=== PATIENT | male | born 1950 | race Caucasian/White ===

== ENCOUNTER 2017-12-06 10:29 | Day surgery (SDC) | payer OTHER ==
[2017-12-02 15:37] VITALS: BMI 29.5
[2017-12-06 10:58] VITALS: TEMP 97.9
[2017-12-06] MEDS ORDERED: LACTATED RINGERS 1,000 ML IV ONE (11:06)
[2017-12-06] MEDS ORDERED: LIDOCAINE 1% 20 ML VIAL (10MG/ML) FOR IV START INTRADERMA ONE (11:07)
[2017-12-06] MEDS ORDERED: PROPOFOL 10 MG/ML 20 ML VIAL IV ONE (12:15)
[2017-12-06] MEDS ORDERED: LIDOCAINE 1% INJ 10MG/ML (20 ML MDV) ONE (12:15)
--- NOTE | 2017-12-06 13:03 | P.PCN ---
Date of Procedure: 12/06/17 Procedure(s) Performed: Procedure: Colonoscopy and polypectomy. Preoperative diagnosis: Positive occult blood in the stools. Postoperative diagnosis: 1. Rectal polyps snared and fulgurated, but no large polyps or cancer. 2. Low-grade internal hemorrhoids not bleeding at the time of the examination. 3. 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 Preparation: HalfLytely prep. Sedation: Was provided by anesthesia. Brief clinical history: The patient is a 67-year-old male who is referred for this evaluation because of finding of blood in his stools. The patient reported occasional fresh bleeding per rectum when he has a hard bowel movement. Has history of prostate cancer for which he received radiation few years ago. No family history of colon cancer. This would be his first colonoscopy. Procedure: With the patient on his left lateral decubitus position and after informed consent and adequate sedation, the perianal area was inspected and it did not show any fissures or fistulas. There were no masses felt on digital rectal examination. The Olympus CFQ 160L video colonoscope was then inserted in the rectum in the usual fashion and advanced to the cecum. There was a 1- 1.5 cm polyp in the rectum close to the rectosigmoid junction which was snared and retrieved by suction. There was a smaller more superficial polyp in the immediate vicinity which I fulgurated with the snare but there were no large polyps or cancer. I retroflexed the endoscope in the rectum before the endoscope was withdrawn. There was low-grade internal hemorrhoids and there was evidence of distal radiation proctitis but there was no evidence of bleeding. The mucosa elsewhere appeared healthy. The patient tolerated the procedure well. Plan: The patient was reassured. Will await pathology results. I anticipate repeating this exam in 5 years. If he continues to show blood in the stools or manifest overt bleeding, I would consider argon plasma coagulation for his radiation proctitis. Discussed dietary measures and local care for hemorrhoids as well. She will follow-up with you as planned.
[2017-12-06 13:14] VITALS: BP 133/76; PULSE 55; RESP 18
== END 2017-12-06 13:39 | disposition home or self-care (01) ==
LOC: ORWHC2ENDO 10:29
DX: D12.7 Benign neoplasm of rectosigmoid junction (principal); K64.8 Other hemorrhoids; K62.7 Radiation proctitis; W88.1XXA Exposure to radioactive isotopes, initial encounter; Z85.46 Personal history of malignant neoplasm of prostate; I10 Essential (primary) hypertension; E78.5 Hyperlipidemia, unspecified; Z87.891 Personal history of nicotine dependence; L40.9 Psoriasis, unspecified; Z79.82 Long term (current) use of aspirin; Z79.899 Other long term (current) drug therapy
CPT/HCPCS: 88305; 45385; J2001; J2704

== ENCOUNTER 2023-01-26 07:43 | Day surgery (SDC) | payer MEDICARE, OTHER ==
[2023-01-21 16:13] VITALS: BMI 28.8
[~2023-01-26 07:43] MED LIST: LACTATED RINGERS 1,000 ML IV SCH
[2023-01-26 08:06] VITALS: TEMP 97.4
[2023-01-26] MEDS ORDERED: PROPOFOL 10 MG/ML 20 ML VIAL IV ONE (08:31)
--- NOTE | 2023-01-26 08:45 | P.PCN ---
Date of Procedure: 01/26/23 (BRIEF HISTORY: Patient is a []-year-old pleasant [] scheduled for an elective colonoscopy as a part of ) Procedure(s) Performed: BRIEF HISTORY: Patient is a 72-year-old pleasant white male scheduled for an elective colonoscopy as a part of evaluation of prior history of colon polyps.. His last colonoscopy was 5 years ago. PROCEDURE PERFORMED: Colonoscopy. PREOPERATIVE DIAGNOSIS: Screening for colon cancer. IV sedation per Anesthesia. PROCEDURE: After informed consent was obtained, the patient, was brought into the endoscopy unit. IV sedation was administered by Anesthesia under continuous monitoring. Digital rectal examination was normal. Initially the Olympus CF-160 flexible video colonoscope was then inserted in the rectum, gradually advanced into the cecum without any difficulty. Careful examination was performed as the scope was gradually being withdrawn. Ileocecal valve and the appendiceal orifice were visualized and appeared normal. Prep was excellent. Mucosa of the cecum, ascending colon, transverse colon, descending colon, sigmoid colon, and rectum appeared normal. Scattered sigmoid diverticulosis Retroflexion was performed in the rectum and no lesions were seen. The patient tolerated the procedure well. IMPRESSION: Normal-appearing colon from rectum to cecum with no evidence of colorectal neoplasia Scattered sigmoid diverticulosis . RECOMMENDATIONS: Findings of this examination were discussed with the patient as well as his family. He was advised to have a repeat screening colonoscopy at age 80..
[2023-01-26 09:42] VITALS: BP 134/76; PULSE 60; RESP 16
== END 2023-01-26 09:54 | disposition home or self-care (01) ==
LOC: ORWHC2ENDO 07:43
PROVIDERS: ATTEND Internal Medicine Gastroenterology
DX: Z12.11 Encounter for screening for malignant neoplasm of colon (principal); K57.30 Diverticulosis of large intestine without perforation or abscess without bleeding; I10 Essential (primary) hypertension; E78.5 Hyperlipidemia, unspecified; Z86.010 Personal history of colon polyps; Z79.899 Other long term (current) drug therapy; Z88.5 Allergy status to narcotic agent
CPT/HCPCS: 45378; J2704